=== PATIENT | female | born 1955 | race Caucasian/White ===

== ENCOUNTER 2018-12-25 11:06 | Inpatient (IN) | payer BC ==
[~2018-12-25] VITALS: Ht 160 cm; Wt 70.2 kg
--- NOTE | 2018-12-25 13:05 | NUR ---
dr parmar spoke with dr lim
[2018-12-25] MEDS ORDERED: HEPARIN 25,000 UNITS/500ML PMX 500 ML ONE (13:23)
[2018-12-25] MEDS ORDERED: HEPARIN 5,000 UNITS/ML, 1ML ONE (13:23)
[2018-12-25] MEDS ORDERED: POLYETHYLENE GLYCOL 17 GM PACKET PO PRN (13:30)
[2018-12-25] MEDS ORDERED: hydrALAzine 20 MG/ML, 1ML IVPush PRN (13:30)
[2018-12-25] MEDS ORDERED: HEPARIN 5,000 UNITS/ML, 1ML IV PRN (13:30)
[2018-12-25] MEDS ORDERED: HEPARIN 5,000 UNITS/ML, 1ML IV ONE (13:30)
[2018-12-25] MEDS ORDERED: ONDANSETRON 2MG/ML, 2ML IVPush PRN (13:30)
[2018-12-25] MEDS ORDERED: ONDANSETRON ODT 4 MG PO PRN (13:30)
[2018-12-25] MEDS ORDERED: PLEASE ENTER ALLERGIES MC SCH (13:30)
[2018-12-25] MEDS ORDERED: GUAIFENESIN/DM 200-20MG, 10ML UDC PO PRN (13:30)
[2018-12-25] MEDS: HEPARIN 25,000 UNITS/500ML PMX 500 ML IV PRN (13:47)
--- NOTE | 2018-12-25 14:25 | NUR ---
LAB CALLED CRITICAL TROP 1.280 MADE AWARE.
[2018-12-25] MEDS ORDERED: methylPREDNISolone SOD SUCC 125 MG/2 ML ONE (14:51)
[2018-12-25 15:00] VITALS: BP 132/78
[2018-12-25] MEDS: methylPREDNISolone SOD SUCC 125 MG/2 ML IVPush SCH (15:06)
[2018-12-25] MEDS: ACETAMINOPHEN 325 MG TABLET PO PRN (17:46)
[2018-12-25 18:45] VITALS: BP 138/77
[2018-12-25] MEDS ORDERED: BUPR150T73 PO (19:06)
[2018-12-25] MEDS ORDERED: ALBU8.5H8 INH (19:06)
[2018-12-25] MEDS ORDERED: LISI5TAB7 PO (19:06)
[2018-12-25] MEDS ORDERED: LORA-446 PO (19:06)
[2018-12-25] MEDS ORDERED: ZOLP10TA PO (19:06)
[2018-12-25] MEDS: ZOLPIDEM 5MG TABLET PO PRN (20:32)
[2018-12-25] MEDS ORDERED: BUPROPION SR 150 MG TABLET PO SCH (21:00)
[2018-12-26] MEDS: methylPREDNISolone SOD SUCC 125 MG/2 ML IVPush SCH ×3 (00:19→16:57)
[2018-12-26] MEDS ORDERED: ALBUTEROL SULFATE 2.5 MG/3 ML ONE (00:47)
[2018-12-26 01:37] VITALS: BP 140/78
[2018-12-26 07:02] LABS: BASOPHILS # (AUTO) 0.03 x10^3/uL (0-0.1); BASOPHILS % (AUTO) 0 % (0-1); EOSINOPHILS % (AUTO) 0 % (1-7); LYMPHOCYTES # (AUTO) 1.47 x10^3/uL (1-3.4); LYMPHOCYTES % (AUTO) 11 % (22-44); MD NO; MEAN PLATELET VOLUME 9.3 fL (7.4-10.4); MONOCYTES # (AUTO) 0.27 x10^3/uL (0.2-0.8); MONOCYTES % (AUTO) 2 % (2-9); NEUTROPHILS # (AUTO) 11.45 x10^3/uL (1.8-6.8); NEUTROPHILS % (AUTO) 87 % (42-75); PLATELET COUNT 303 x10^3/uL (130-400); RED BLOOD COUNT 5.04 x10^6/uL (3.82-5.3); RED CELL DISTRIBUTION WIDTH 12.3 % (9.6-15.2)
[2018-12-26 07:03] LABS: ALBUMIN 3.9 g/dL (3.4-5.0); ANION GAP 8 mmol/L (5-15); CALCIUM 8.8 mg/dL (8.5-10.1); CHLORIDE 109 mmol/L (98-107)
[2018-12-26 07:06] LABS: ALANINE AMINOTRANSFERASE 21 U/L (12-78); ALKALINE PHOSPHATASE 53 U/L (45-117); BILIRUBIN,TOTAL 0.3 mg/dL (0.2-1.0); CREATININE 0.89 mg/dL (0.55-1.02); TOTAL PROTEIN 7.3 g/dL (6.4-8.2)
[2018-12-26 08:07] LABS: CHOL/HDL RATIO 2.4; LDL/HDL RATIO 1.2 (0.5-3.0)
[2018-12-26 08:30] VITALS: BP 128/71
[2018-12-26] MEDS: ACETAMINOPHEN 325 MG TABLET PO PRN (09:24)
[2018-12-26] MEDS: BUPROPION SR 150 MG TABLET PO SCH ×2 (09:24→11:39)
[2018-12-26] MEDS: METOPROLOL TARTRATE 25 MG TABLET PO SCH ×2 (09:24→17:03)
[2018-12-26] MEDS: ALBUTEROL SULFATE 2.5 MG/3 ML NPPB PRN ×2 (11:50→21:26)
[2018-12-26 13:15] VITALS: BP 119/72
[2018-12-26] MEDS: HEPARIN 25,000 UNITS/500ML PMX 500 ML IV PRN (17:00)
[2018-12-26 19:19] VITALS: BP 131/82
[2018-12-26] MEDS: ZOLPIDEM 5MG TABLET PO PRN (21:36)
[2018-12-26] MEDS: ATORVASTATIN 40 MG TABLET PO SCH (21:36)
[2018-12-27] MEDS: methylPREDNISolone SOD SUCC 125 MG/2 ML IVPush SCH ×3 (00:04→16:24)
[2018-12-27 01:23] VITALS: BP 107/60
[2018-12-27 05:15] LABS: ANION GAP 5 mmol/L (5-15); CALCIUM 8.8 mg/dL (8.5-10.1); CHLORIDE 110 mmol/L (98-107); CREATININE 0.93 mg/dL (0.55-1.02)
[2018-12-27 05:25] LABS: BASOPHILS # (AUTO) 0.04 x10^3/uL (0-0.1); BASOPHILS % (AUTO) 0 % (0-1); EOSINOPHILS % (AUTO) 0 % (1-7); LYMPHOCYTES # (AUTO) 1.14 x10^3/uL (1-3.4); LYMPHOCYTES % (AUTO) 7 % (22-44); MD NO; MEAN CORPUSCULAR HEMOGLOBIN 31.5 pg (27.0-34.8); MEAN CORPUSCULAR HGB CONC 32.7 g/dL (32.4-35.8); MEAN CORPUSCULAR VOLUME 96.1 fL (80-100); MEAN PLATELET VOLUME 9.5 fL (7.4-10.4); MONOCYTES # (AUTO) 0.59 x10^3/uL (0.2-0.8); MONOCYTES % (AUTO) 4 % (2-9); NEUTROPHILS # (AUTO) 14.98 x10^3/uL (1.8-6.8); NEUTROPHILS % (AUTO) 89 % (42-75); PLATELET COUNT 274 x10^3/uL (130-400); RED BLOOD COUNT 4.75 x10^6/uL (3.82-5.3); RED CELL DISTRIBUTION WIDTH 12.9 % (9.6-15.2)
[2018-12-27] MEDS: METOPROLOL TARTRATE 25 MG TABLET PO SCH ×2 (05:35→18:23)
[2018-12-27] MEDS ORDERED: SODIUM CHLORIDE 0.9% 1,000 ML IV SCH (06:00)
[2018-12-27 07:30] VITALS: BP 110/70
[2018-12-27] MEDS: BUPROPION SR 150 MG TABLET PO SCH ×2 (08:00→12:07)
[2018-12-27] MEDS: ASPIRIN 81 MG TABLET EC PO SCH (08:38)
[2018-12-27] MEDS: ALBUTEROL SULFATE 2.5 MG/3 ML NPPB PRN (09:13)
[2018-12-27] MEDS ORDERED: FENTANYL PF 100 MCG/2ML ONE (10:13)
[2018-12-27] MEDS ORDERED: MIDAZOLAM 1 MG/ML, 5ML ONE (10:13)
[2018-12-27] MEDS ORDERED: VERAPAMIL 2.5 MG/ML, 2ML ONE (10:14)
[2018-12-27] MEDS ORDERED: LIDOCAINE-MPF 1%, 5ML ONE (10:14)
[2018-12-27] MEDS ORDERED: TICAGRELOR 90 MG TABLET ONE (10:14)
[2018-12-27] MEDS ORDERED: HEPARIN 1,000 UNITS/ML, 10ML ONE (10:14)
[2018-12-27] MEDS ORDERED: NITROGLYCERIN 5 MG/ML, 10ML ONE (10:14)
[2018-12-27] MEDS ORDERED: BIVALIRUDIN 250 MG ONE (10:14)
[2018-12-27] MEDS: SODIUM CHLORIDE 0.9% 1,000 ML IV SCH ×2 (12:00→20:00)
[2018-12-27 13:18] VITALS: BP 133/74
[2018-12-27 19:11] VITALS: BP 117/62
[2018-12-27] MEDS: ATORVASTATIN 40 MG TABLET PO SCH (20:14)
[2018-12-27] MEDS: ZOLPIDEM 5MG TABLET PO PRN (21:41)
[2018-12-28] MEDS: methylPREDNISolone SOD SUCC 125 MG/2 ML IVPush SCH ×2 (00:38→07:43)
[2018-12-28 00:43] VITALS: BP 108/66
[2018-12-28] MEDS: ASPIRIN 81 MG TABLET EC PO SCH (05:31)
[2018-12-28] MEDS: METOPROLOL TARTRATE 25 MG TABLET PO SCH (05:31)
[2018-12-28 05:36] LABS: BASOPHILS # (AUTO) 0.01 x10^3/uL (0-0.1); BASOPHILS % (AUTO) 0 % (0-1); EOSINOPHILS # (AUTO) 0.07 x10^3/uL (0-0.4); EOSINOPHILS % (AUTO) 0 % (1-7); LYMPHOCYTES # (AUTO) 1.18 x10^3/uL (1-3.4); LYMPHOCYTES % (AUTO) 7 % (22-44); MD NO; MEAN CORPUSCULAR HEMOGLOBIN 31.8 pg (27.0-34.8); MEAN CORPUSCULAR HGB CONC 33.1 g/dL (32.4-35.8); MEAN CORPUSCULAR VOLUME 96.2 fL (80-100); MEAN PLATELET VOLUME 9.1 fL (7.4-10.4); MONOCYTES # (AUTO) 0.46 x10^3/uL (0.2-0.8); MONOCYTES % (AUTO) 3 % (2-9); NEUTROPHILS # (AUTO) 14.62 x10^3/uL (1.8-6.8); NEUTROPHILS % (AUTO) 90 % (42-75); PLATELET COUNT 296 x10^3/uL (130-400); RED BLOOD COUNT 4.99 x10^6/uL (3.82-5.3); RED CELL DISTRIBUTION WIDTH 12.7 % (9.6-15.2)
[2018-12-28 05:45] LABS: CHLORIDE 110 mmol/L (98-107)
[2018-12-28 05:48] LABS: CALCIUM 8.7 mg/dL (8.5-10.1); CREATININE 0.95 mg/dL (0.55-1.02)
[2018-12-28 07:21] VITALS: BP 134/59
[2018-12-28] MEDS: BUPROPION SR 150 MG TABLET PO SCH ×2 (07:43→12:00)
[2018-12-28] MEDS ORDERED: METO25TA35 PO (08:50)
[2018-12-28] MEDS ORDERED: ATOR40TA78 PO (08:50)
[2018-12-28] MEDS ORDERED: PRED20TA PO (08:50)
[2018-12-28] MEDS ORDERED: CLOP75TA PO (08:50)
[2018-12-28] MEDS ORDERED: ALBU8.5H8 INH (08:50)
[2018-12-28] MEDS ORDERED: ASPI81TA45 PO (08:50)
[2018-12-28] MEDS ORDERED: CLOPIDOGREL 75 MG TABLET PO SCH (09:00)
[2018-12-28] MEDS: ALBUTEROL SULFATE 2.5 MG/3 ML NPPB PRN (09:45)
== END 2018-12-28 12:45 | disposition home or self-care (01) | DRG 917 ==
LOC: ED 13:04 → EDIP 13:07 → 5SO 14:58 → DCLOUNGE 12-28 12:25
PROVIDERS: ADMIT Family Medicine; ATTEND Family Medicine
PROC: 4A023N7 Measurement of Cardiac Sampling and Pressure, Left Heart, Percutaneous Approach (ICD-10-PCS; principal; 2018-12-27)
PROC: B2111ZZ Fluoroscopy of Multiple Coronary Arteries using Low Osmolar Contrast (ICD-10-PCS; 2018-12-27)
PROC: B2151ZZ Fluoroscopy of Left Heart using Low Osmolar Contrast (ICD-10-PCS; 2018-12-27)
PROC: 4A033BC Measurement of Arterial Pressure, Coronary, Percutaneous Approach (ICD-10-PCS; 2018-12-27)
DX: T59.811A Toxic effect of smoke, accidental (unintentional), initial encounter (principal); I21.4 Non-ST elevation (NSTEMI) myocardial infarction; J68.0 Bronchitis and pneumonitis due to chemicals, gases, fumes and vapors; I51.81 Takotsubo syndrome; G47.00 Insomnia, unspecified; I10 Essential (primary) hypertension; F41.9 Anxiety disorder, unspecified; D72.829 Elevated white blood cell count, unspecified; Z90.711 Acquired absence of uterus with remaining cervical stump; Z87.891 Personal history of nicotine dependence; Z85.820 Personal history of malignant melanoma of skin; Y92.89 Other specified places as the place of occurrence of the external cause
CPT/HCPCS: 36415; 93458; 93571; J7613; 71046; 80048; 80053; 80061; 83735; 84484; 85025; 85520; 86038; 93005; 93306; 94640; 99156; C1769; C1894; G0378; J0583; J1644; J2250; J3010; C1887; J2930; Q9967